=== PATIENT | female | born 1970 | race African-American/Black ===

== ENCOUNTER 2020-10-01 20:06 | Inpatient (IN) ==
[2020-10-01 21:11] LABS: Basophils % 0.1 % (0.0-0.8); Eosinophils # 0.1 10*3/uL (0.0-0.87); Eosinophils % 0.8 % (0.00-10.9); Hematocrit 42.5 VOL% (35.7-47.0); Hemoglobin 13.1 GM/DL (12.0-16.0); Immature Granulocytes % 0.3 %; Immature Granulocytes Absolute 0.04 #; Lymphocytes # 3.6 10*3/uL (1.4-4.0); Lymphocytes % 29.9 % (21.3-54.2); Mean Corpuscular HGB Conc 30.8 GM/DL (32-36); Mean Corpuscular Volume 74.6 FL (87-102); Mean Platelet Volume 11.7 FL (9.6-12.0); Monocytes % 8.6 % (1.7-12.7); Neutrophils % 60.3 % (38.7-73.9); Platelet Count 243 T/CUMM (130-400); Red Cell Distribution Width 15.7 % (9.3-17.3); White Blood Count 11.9 T/CUMM (4-12)
[2020-10-01] MEDS ORDERED: ALUM/MAG/SIMETH/LIDO VISC 1:1 30 ML BOTTLE PO STA (21:11)
[2020-10-01] MEDS ORDERED: MORPHINE 4 MG/1 ML VIAL IV STA (21:11)
[2020-10-01] MEDS ORDERED: ONDANSETRON 4 MG/2 ML VIAL IV STA (21:11)
[2020-10-01] MEDS ORDERED: NITROGLYCERIN 2% OINT 1 INCH/GM PACK TOP STA (21:11)
[2020-10-01] MEDS ORDERED: ASPIRIN 325 MG TABLET PO STA (21:11)
[2020-10-01 21:19] LABS: PT Patient Result 10.3 SECS (9.8-11.9); Partial Thromboplastin Time 34.3 SECS (23.9-33.8)
[2020-10-01 21:20] LABS: Albumin 3.8 G/DL (3.4-5.0); Bilirubin,Total 0.9 MG/DL (0.2-1.0); Calcium 9.1 MG/DL (8.5-10.1); Osmolality,Calculated 274.7 MOS/KG (273-304); Potassium 3.5 MMOL/L (3.5-5.1); Total Protein 8.1 G/DL (5.0-7.5)
[2020-10-01] MEDS ORDERED: ENOXAPARIN 100 MG/ML SYRINGE SUBCUT STA (21:31)
[2020-10-01] MEDS ORDERED: ENOXAPARIN 80 MG/0.8 ML SYRINGE SUBCUT ONE (22:06)
[2020-10-01] MEDS ORDERED: ACETAMINOPHEN 325 MG TABLET PO PRN (23:54)
[2020-10-01] MEDS ORDERED: DOCUSATE SODIUM 100 MG CAPSULE PO PRN (23:54)
[2020-10-01] MEDS ORDERED: GLUCAGON 1 MG VIAL IM PRN (23:54)
[2020-10-01] MEDS ORDERED: DEXTROSE 50% 25 GM/50 ML VIAL IV PRN (23:54)
[2020-10-01] MEDS ORDERED: hydrALAZINE 20 MG/1 ML VIAL IV PRN (23:54)
[2020-10-01] MEDS ORDERED: MORPHINE 4 MG/1 ML VIAL IV PRN (23:54)
[2020-10-01] MEDS ORDERED: ONDANSETRON 4 MG/2 ML VIAL IV PRN (23:54)
[2020-10-01] MEDS ORDERED: ENOXAPARIN 40 MG/0.4 ML SYRINGE SUBCUT STA (23:57)
[2020-10-01] MEDS ORDERED: PANTOPRAZOLE 40 MG TABLET PO PRN (23:59)
[2020-10-02 04:39] LABS: Calcium 8.9 MG/DL (8.5-10.1); Osmolality,Calculated 272.8 MOS/KG (273-304); Potassium 3.4 MMOL/L (3.5-5.1); Risk Ratio 3.14; Thyroid Stimulating Hormone 0.868 uIU/ml (0.358-3.74); VLDL CHOLESTEROL 14.2 MG/DL
[2020-10-02 07:04] LABS: Basophils % 0.1 % (0.0-0.8); Eosinophils # 0.1 10*3/uL (0.0-0.87); Eosinophils % 0.7 % (0.00-10.9); Hematocrit 37.4 VOL% (35.7-47.0); Immature Granulocytes % 0.3 %; Immature Granulocytes Absolute 0.03 #; Lymphocytes # 3.9 10*3/uL (1.4-4.0); Lymphocytes % 38.8 % (21.3-54.2); Mean Corpuscular HGB Conc 32.1 GM/DL (32-36); Mean Platelet Volume 12.1 FL (9.6-12.0); Monocytes % 7.4 % (1.7-12.7); Neutrophils % 52.7 % (38.7-73.9); Platelet Count 214 T/CUMM (130-400); Red Blood Count 5.12 MC/CUMM (3.8-5.5); Red Cell Distribution Width 15.3 % (9.3-17.3)
[2020-10-02] MEDS ORDERED: MAGNESIUM SULF RIDER 2 GM in PREMIX 1 EACH IV PRN (08:00)
[2020-10-02] MEDS ORDERED: POTASSIUM CHLORIDE RIDER 10 MEQ in PREMIX 1 EACH IV PRN ×2 (08:00→10:11)
[2020-10-02] MEDS: ASPIRIN EC 81 MG TABLET PO SCH (08:08)
[2020-10-02] MEDS: METOPROLOL SUCCINATE XL 50 MG TABLET PO SCH (08:09)
[2020-10-02] MEDS: POTASSIUM CHLORIDE 20 MEQ TABLET PO SCH (08:09)
[2020-10-02] MEDS: amLODIPine 10 MG TABLET PO SCH (08:09)
[2020-10-02] MEDS: hydroCHLOROthiazide 12.5 MG CAPSULE PO SCH (08:09)
[2020-10-02] MEDS: ENALAPRIL 20 MG TABLET PO SCH (08:10)
[2020-10-02] MEDS: ENOXAPARIN 120 MG/0.8 ML SYRINGE SUBCUT SCH ×2 (13:04→23:17)
[2020-10-02] MEDS ORDERED: ROSUVASTATIN 20 MG TABLET PO SCH (21:00)
[2020-10-03] MEDS ORDERED: SODIUM CHLORIDE 0.45% 1,000 ML IV SCH (06:00)
[2020-10-03 06:52] LABS: Basophils % 0.2 % (0.0-0.8); Eosinophils # 0.1 10*3/uL (0.0-0.87); Eosinophils % 0.6 % (0.00-10.9); Hematocrit 37.9 VOL% (35.7-47.0); Immature Granulocytes % 0.2 %; Immature Granulocytes Absolute 0.02 #; Lymphocytes # 2.5 10*3/uL (1.4-4.0); Lymphocytes % 29.5 % (21.3-54.2); Mean Corpuscular HGB Conc 31.7 GM/DL (32-36); Mean Corpuscular Volume 73.6 FL (87-102); Mean Platelet Volume 11.1 FL (9.6-12.0); Monocytes % 8.1 % (1.7-12.7); Neutrophils % 61.4 % (38.7-73.9); Platelet Count 203 T/CUMM (130-400); Red Blood Count 5.15 MC/CUMM (3.8-5.5); Red Cell Distribution Width 14.9 % (9.3-17.3); White Blood Count 8.6 T/CUMM (4-12)
[2020-10-03 07:16] LABS: Calcium 8.8 MG/DL (8.5-10.1); Osmolality,Calculated 273.8 MOS/KG (273-304); Potassium 3.5 MMOL/L (3.5-5.1)
[2020-10-03] MEDS ORDERED: HEPARIN/NACL 0.9% 2 UNITS/ML 1,000 ML IV ONE (09:32)
[2020-10-03] MEDS: amLODIPine 10 MG TABLET PO SCH (09:59)
[2020-10-03] MEDS: ENALAPRIL 20 MG TABLET PO SCH (09:59)
[2020-10-03] MEDS: METOPROLOL SUCCINATE XL 50 MG TABLET PO SCH (09:59)
[2020-10-03] MEDS: ASPIRIN EC 81 MG TABLET PO SCH (09:59)
[2020-10-03] MEDS ORDERED: LIDOCAINE 1% 20 ML VIAL ONE (10:04)
[2020-10-03] MEDS ORDERED: diphenhydrAMINE CAP 50 MG CAPSULE PO ONE (10:30)
[2020-10-03] MEDS ORDERED: DIAZEPAM 5 MG TABLET PO ONE (10:30)
[2020-10-03] MEDS ORDERED: NITROGLYCERIN DRIP 50 MG/250 ML BOTTLE IV ONE (11:18)
[2020-10-03] MEDS ORDERED: MIDAZOLAM 2 MG/2 ML VIAL ONE (11:18)
[2020-10-03] MEDS ORDERED: fentaNYL 100 MCG/2 ML VIAL ONE (11:18)
[2020-10-03] MEDS ORDERED: VERAPAMIL 5 MG/2 ML VIAL ONE (11:18)
[2020-10-03] MEDS ORDERED: ENOXAPARIN 60 MG/0.6 ML SYRINGE ONE (11:34)
[2020-10-03] MEDS ORDERED: CLOPIDOGREL 300 MG TABLET PO ONE (12:01)
[2020-10-03] MEDS: hydroCHLOROthiazide 12.5 MG CAPSULE PO SCH (14:28)
[2020-10-03] MEDS: POTASSIUM CHLORIDE 20 MEQ TABLET PO SCH (14:28)
[2020-10-03 16:05] VITALS: BP 124/80
[2020-10-04] MEDS ORDERED: CLOPIDOGREL 75 MG TABLET PO SCH (09:00)
== END 2020-10-03 18:03 | disposition home or self-care (01) | DRG 281 ==
LOC: N.ED 20:06 → N.EDINP 20:06 → N.ICU 22:45 → N.TELES 10-02 15:39
PROVIDERS: ADMIT Internal Medicine; ATTEND Internal Medicine Interventional Cardiology
PROC: CLCCHCL (ICD-10-PCS; 2020-10-03 11:45)